=== PATIENT | male | born 1970 | race Caucasian/White ===

== ENCOUNTER 2021-09-10 22:05 | Emergency (ER) | payer OTHER ==
[~2021-09-10 22:05] MED LIST: CYCLOBENZAPRINE10 MG PO; HUMALOG100 UNIT/1 SC; IBUPROFEN600 MG PO
== END 2021-09-10 23:13 | disposition left against medical advice (07) ==
LOC: ER1 22:05
DX: Z53.21 Procedure and treatment not carried out due to patient leaving prior to being seen by health care provider (principal)

== ENCOUNTER 2021-09-11 14:59 | Emergency (ER) | payer OTHER ==
[2021-09-11 17:25] LABS: HEMOGLOBIN 13.7 gm/dl (14.0-17.5); RED BLOOD COUNT 4.54 M/UL (4.20-5.50); WHITE BLOOD COUNT 8.6 K/UL (4.5-11.0)
[2021-09-11 17:43] LABS: BUN/CREATININE RATIO 36 (0-10)
== END 2021-09-11 22:44 | disposition home or self-care (01) ==
LOC: ER1 14:59
PROVIDERS: Emergency Medicine
DX: M54.50 Low back pain, unspecified (principal); R00.0 Tachycardia, unspecified; F17.200 Nicotine dependence, unspecified, uncomplicated; Z20.822 Contact with and (suspected) exposure to COVID-19; I10 Essential (primary) hypertension; E11.9 Type 2 diabetes mellitus without complications; Z79.4 Long term (current) use of insulin; Z88.6 Allergy status to analgesic agent
CPT/HCPCS: 72156; 72157; 72158; 80053; 80307; 81001; 82550; 82553; 83605; 83690; 83735; 84100; 84484; 85025; 85610; 85652; 85730; 86140; 87040; 87086; 99284; A9577; U0002